=== PATIENT | male | born 1970 | race African-American/Black ===

== ENCOUNTER → 2017-05-16 10:04 | Outpatient (CLI) | payer MEDICAID ==
[2015-04-29 07:58] VITALS: BMI 38.4
[~2017-05-16 10:04] MED LIST: BENICAR HCT 20-1 TA1; BETAPACE 80 MG80 MG PO; FERROUS SULFAT325 MG PO; NAPROSYN500 MG PO; NORVASC10 MG PO
[2017-05-19 12:19] LABS: PROTEIN - URINE 16.6 mg/dL (0.0-11.9)
== END | disposition home or self-care (01) ==
LOC: D.US 10:04
PROVIDERS: Internal Medicine Cardiovascular Disease
DX: R93.8 Abnormal findings on diagnostic imaging of other specified body structures (principal)

== ENCOUNTER → 2017-10-28 14:14 | Outpatient (CLI) | payer MEDICAID ==
[2015-04-29 07:58] VITALS: BMI 38.4
== END | disposition home or self-care (01) ==
LOC: D.MRI 13:00
DX: M51.26 Other intervertebral disc displacement, lumbar region (principal)

== ENCOUNTER → 2020-05-18 15:06 | Outpatient (CLI) | payer OTHER ==
[2015-04-29 07:58] VITALS: BMI 38.4
[2020-05-18 16:17] LABS: ALBUMIN 3.7 g/dL (3.4-5.0); ANION GAP 10.6 mmol/L (8-16); BILIRUBIN - TOTAL 0.45 mg/dL (0.2-1.3); CALCIUM 8.3 mg/dL (8.5-10.1); CREATININE - SERUM 1.3 mg/dL (0.6-1.3); POTASSIUM - SERUM 3.6 mmol/L (3.5-5.1); PROTEIN - SERUM 7.1 g/dL (6.4-8.2)
== END | disposition home or self-care (01) ==
LOC: D.LAB 15:06
PROVIDERS: ATTEND Internal Medicine Cardiovascular Disease
DX: R06.02 Shortness of breath (principal); I50.42 Chronic combined systolic (congestive) and diastolic (congestive) heart failure; I10 Essential (primary) hypertension

== ENCOUNTER → 2020-06-20 16:07 | Outpatient (CLI) | payer OTHER ==
[2015-04-29 07:58] VITALS: BMI 38.4
[2020-06-20 16:41] LABS: BASOPHILS 0.3 % (0-2); EOSINOPHILS 1.8 % (0-7); HEMATOCRIT 42.5 % (42.0-54.0); HEMOGLOBIN 14.5 g/dL (13.5-17.5); IMMATURE GRANULOCYTES 0.8 % (0-5); LYMPHOCYTE ABS# 1.97 10x3/uL (1.32-3.57); LYMPHOCYTES 25.6 % (15-50); MCH 31.3 pg (26.0-34.0); MCHC 34.1 g/dL (31.0-37.0); MCV 91.6 fL (80.0-100.0); MEAN PLATELET VOLUME 10.8 fL (7.4-10.4); MONOCYTES 8.2 % (2-11); NEUTROPHIL ABS# 4.89 10x3/uL (1.78-5.38); NEUTROPHILS 63.3 % (40-80); PLATELET COUNT 213 10x3/uL (130-400); RBC 4.64 10x6/uL (4.20-6.10); RDW 13.9 % (11.5-14.5); WBC 7.7 10x3/uL (4.8-10.8)
[2020-06-20 16:47] LABS: INR 1.54 (0.85-1.17); PROTIME 17.1 SECONDS (11.6-15.0)
[2020-06-20 16:52] LABS: ALBUMIN 3.6 g/dL (3.4-5.0); ANION GAP 10.9 mmol/L (8-16); BILIRUBIN - TOTAL 0.63 mg/dL (0.2-1.3); CALCIUM 8.6 mg/dL (8.5-10.1); CARBON DIOXIDE 28.8 mmol/L (21.0-32.0); CREATININE - SERUM 1.3 mg/dL (0.6-1.3); MAGNESIUM - SERUM 2.1 mg/dL (1.8-2.4); POTASSIUM - SERUM 3.7 mmol/L (3.5-5.1); PROTEIN - SERUM 7.1 g/dL (6.4-8.2); T4 THYROXINE 8.3 ug/dL (4.7-13.3); THYROID STIMULATING HORMONE 1.92 uIU/mL (0.36-3.74)
== END | disposition home or self-care (01) ==
LOC: D.LAB 16:07
PROVIDERS: ATTEND Internal Medicine Cardiovascular Disease
DX: E11.9 Type 2 diabetes mellitus without complications (principal); I10 Essential (primary) hypertension; I48.91 Unspecified atrial fibrillation; I42.8 Other cardiomyopathies; R06.02 Shortness of breath; R53.1 Weakness; I50.42 Chronic combined systolic (congestive) and diastolic (congestive) heart failure